=== PATIENT | female | born 1950 | race African-American/Black ===

== ENCOUNTER 2022-03-21 12:32 | Emergency (ER) | payer MEDICARE, SELFPAY ==
--- NOTE | ~2022-03-21 | CT_ITS ---
EXAMINATION: CT brain wo con DATE: 03/21/2022 14:40 INDICATION: trauma . TECHNIQUE: Computed tomography (CT) of the head was performed without intravenous contrast. The mA wa s adjusted according to patient size. Iterative reconstruction technique was employed. The dose-lengt h product was 605.33 mGy-cm. COMPARISON: None FINDINGS: No acute intracranial hemorrhage or extra-axial fluid collection. No hydrocephalus, mass, or herniation. No acute ischemic infarct. Unremarkable dural venous sinus attenuation. No acute osseous abnormality. Small retention cyst or polyp in the left anterior ethmoid air cells, minimal bilateral maxillary sin us mucosal thickening, trace left mastoid fluid, the remaining aerated spaces are clear. Mild atrophy and chronic white matter change. Atherosclerotic intracranial calcification. Bilateral l ens replacements. IMPRESSION: No acute intracranial process. Reviewed, dictated and finalized at location K.
--- NOTE | ~2022-03-21 | CT_ITS ---
EXAMINATION: CT facial & cervical spine wo DATE: 03/21/2022 14:39 INDICATION: trauma TECHNIQUE: Computed tomography (CT) of the maxillofacial region and cervical spine was performed with out intravenous contrast. Automated exposure control and iterative reconstruction technique were empl oyed. The dose-length product was 338.02 mGy-cm. COMPARISON: None FINDINGS: CERVICAL: Vertebral Body Alignment: Intact. Craniocervical and atlantoaxial alignment: Moderate degenerative change. Alignment intact. Osseous structures/fracture: No evidence of a lytic or blastic process in the visualized spine. Nond isplaced fracture through the right lamina of C6. Cervical soft tissues: The paraspinal soft tissues planes are maintained. Degenerative changes: Degenerative changes, without severe central canal narrowing. Multilevel bilate ral severe neural foraminal narrowing. FACE: Soft Tissues: Significant soft tissue swelling over the mandible, with small laceration. Facial bones: Oblique nondisplaced fracture through the anterior portion of the left mandibular body which carries through the root beds of the left mandibular premolars. No lytic or blastic process. Eyes: The globes are intact. Bilateral lens replacements. The soft tissue planes of the orbits are m aintained. Paranasal Sinuses: Small retention cyst or polyp in the left anterior ethmoid air cells. Minimal janette ateral maxillary sinus mucosal thickening. Trace left mastoid effusion. Foreign Bodies: No radiopaque foreign bodies. Other Findings: None. IMPRESSION: Nondisplaced fracture of the right C6 lamina. Nondisplaced oblique fracture of the left mandibular kelly dy. Reviewed, dictated and finalized at location K. IMPRESSION: Nondisplaced fracture of the right C6 lamina. Nondisplaced oblique fracture of the left mandibular body.
--- NOTE | ~2022-03-21 | CT_ITS ---
EXAMINATION: CT chest abdomen pelvis w con DATE: 03/21/2022 14:39 INDICATION: trauma with right chest pain and epigastric pain . TECHNIQUE: Computed tomography (CT) of the chest, abdomen, and pelvis was performed with 100 mL Omnip aque-350 intravenous contrast. Automated exposure control and iterative reconstruction technique were employed. The dose-length product was 1582.13 mGy-cm. COMPARISON: None FINDINGS: CHEST: No thoracic aortic injury. Mild arch calcification. No mediastinal hematoma. No pericardial effusion. Moderate cardiomegaly. No acute lung injury. Emphysematous and senescent change. Right basilar atelectasis. No pneumothorax. Moderate volume right pleural fluid. ABDOMEN/PELVIS: No solid organ injury. Hepatomegaly. Steatosis. Pancreatic and bilateral renal cortical atrophy. No evidence of bowel or mesenteric injury. No free fluid or free air. Mild mesenteric edema and presacral edema. No retroperitoneal hematoma. Pelvic contents are atraumatic. Marked uterine enlargement, with both calcified and noncalcified mass es. MUSCULOSKELETAL: No acute fracture. Diffuse body wall edema No fracture or traumatic malalignment of the thoracic or lumbar spine. IMPRESSION: Moderate right pleural effusion. Hepatomegaly and steatosis. Uterine enlargement with multiple masses , consider nonemergent, outpatient pelvic MR for further evaluation. Reviewed, dictated and finalized at location K. IMPRESSION: Moderate right pleural effusion. Hepatomegaly and steatosis. Uterine enlargemen t with multiple masses, consider nonemergent, outpatient pelvic MR for further evaluation.
[2022-03-21 12:43] VITALS: BP 151/109; PULSE 118; RESP 18; TEMP 36.2; O2SAT 96
[2022-03-21 13:58] LABS: Basophils Absolute Auto 0.1 K/mm3 (0.0-0.1); Basophils Percent Auto 0.6 % (0.2-1.2); Eosinophils Percent Auto 0.2 % (0-4.4); Hematocrit 50.8 % (37.0-47.0); Hemoglobin 16.8 g/dL (12.0-15.0); Immature Granulocyte Absolute 0.05 K/mm3 (0.00-0.031); Immature Granulocyte Percent A 0.4 % (0-0.5); Lymphocytes Percent Auto 14.4 % (18.3-44.2); Mean Corpuscular HGB Conc 33.1 g/dl (32-36); Mean Corpuscular Hemoglobin 31.3 pg (26-34); Mean Corpuscular Volume 94.8 fl (80-100); Mean Platelet Volume 9.5 fl (7.4-10.4); Monocytes Absolute Auto 0.8 K/mm3 (0.1-0.6); Monocytes Percent Auto 6.4 % (2.6-8.5); Neutrophils Absolute Auto 9.7 K/mm3 (1.3-6.7); Platelet Count Result 217 k/mm3 (150-375); Red Blood Count 5.36 M/mm3 (4.2-5.4); Red Cell Distribution Width 16.4 % (11.5-14.5); White Blood Count 12.5 K/mm3 (4.5-10.0)
[2022-03-21] MEDS: MORPHINE SULFATE (*CRX) 4 MG/ML INJ IV PUSH (13:58)
[2022-03-21 14:05] VITALS: BP 121/89; PULSE 93; RESP 18; O2SAT 95
[2022-03-21 14:09] LABS: Alanine Aminotransferase 27 U/L (6-35); Albumin Level 4.8 g/dL (3.5-5.1); Alkaline Phosphatase 140 U/L (38-126); Anion Gap 13 mmol/L (8-16); Aspartate Amino Transferase 57 U/L (14-36); Bilirubin,Total 1.9 mg/dL (0.2-1.3); Blood Urea Nitrogen 13 mg/dL (7-17); Calcium 9.2 mg/dL (8.4-10.2); Carbon Dioxide 30 mmol/L (22-30); Chloride 98 mmol/L (98-107); Estimated CRCL calculation 56 ml/min; Estimated Glomerular Filt Rate > 60; Glucose 113 mg/dL (65-110); INR 1.1; Partial Thromboplastin Time 29.1 SECONDS (22.3-36.8); Potassium 3.9 mmol/L (3.4-5.0); Prothrombin Time 13.8 Seconds (11.1-14.7); Sodium 141 mmol/L (137-145)
[2022-03-21 15:36] LABS: Appearance Urine Clear (Clear); Bilirubin Urine 2+ (Negative); Blood Urine 1+ (Negative); Color Urine Yellow (Yellow); Glucose Urine UA Negative (Negative); Ketones Urine Trace mg/dL (Negative); Leukocyte Esterase Ur Negative LEU/UL (Negative); Nitrate Urine Negative (Negative); Protein Urine 3+ mg/dL (Negative); Specific Grav Ur 1.015 (1.001-1.035)
--- NOTE | 2022-03-21 15:44 | ED.FALL ---
HPI - Fall General Chief Complaint: Fall Stated Complaint: fall Time Seen by Provider: 03/21/22 13:06 History of Present Illness HPI Narrative: Patient is a 71-year-old female who presents ER with multiple complaints. She reports last night she was drinking alcohol and got to the point where she tripped and fell. She does not remember the fall and believes she lost consciousness. Today she has pain to her chin, her right chest wall as well as her abdomen. Denies bruising to abdomen or chest wall. She has swelling and bruising to the jaw. No difficulty breathing or swallowing. Has pain with trying to eat and put her teeth together. She is not on any blood thinners. Related Data Allergies Allergy/AdvReac Type Severity Reaction Status Date / Time ANASTASIYA Inhibitors Allergy Mild cough Verified 03/21/22 13:04 bee pollen Allergy Unknown Unknown Verified 03/21/22 13:04 Bumble Bee Allergy Unknown CARRIED Uncoded 03/21/22 13:04 EPIPEN Honey Bee Allergy Unknown CARRIED Uncoded 03/21/22 13:04 EPI PEN Review of Systems Review of Systems: All systems reviewed & are unremarkable except as noted in HPI and below Constitutional: Constitutional: Denies chills, Denies fatigue and Denies fever(s) Eyes: Eyes: Denies change in vision and Denies photophobia ENT: Denies nasal congestion and Denies sore throat Comments: Jaw pain Cardiovascular: Cardiovascular: Reports chest pain, Denies rapid heart rate and Denies radiating jaw, neck or arm pain Respiratory: Respiratory: Denies cough, Denies dyspnea and Denies wheezing Gastrointestinal: Gastrointestinal: Reports abdominal pain, Denies diarrhea, Denies nausea and Denies vomiting Genitourinary: Genitourinary: Denies dysuria and Denies flank pain Neurologic: Reports syncope, Denies headache(s), Denies focal weakness and Denies numbness PMFSH Past Medical History Medical History (Updated 03/21/22 @ 16:24 by Jose Alfredo Harper MD) Anxiety Breast CA Diabetes mellitus Essential hypertension Hyperlipidemia Hypersomnia Surgical History Surgical History History of cataract surgery Family History Family History Mother Patient's mother is in good health Father Patient's father is in good health Sibling Patient's brother is in good health Social History Social History Smoking status: Current every day smoker Tobacco type: cigarettes Second hand tobacco smoke exposure: No Alcohol intake: current Exam Narrative: GENERAL: Uncomfortable-appearing, well-nourished, and in no acute distress. HEAD: Normocephalic, atraumatic. EYES: PERRL and EOMI. ENT: Mucous membranes moist. Bruising mental region of the jaw and left mandible. No intraoral fracture identified. Abrasion also noted over the jaw. NECK: Supple. Mild neck tenderness. CHEST: Clear to auscultation. No respiratory distress. Tender palpation over the right chest wall beneath the axilla. HEART: Regular rate and rhythm. Normal peripheral pulses. ABDOMEN: Soft, diffusely tender but worse in the epigastrium with guarding, nondistended, normal active bowel sounds. EXTREMITIES: Normal range of motion. No edema. SKIN: Warm, dry, no rash. NEURO: No focal deficits. Alert and oriented x3. Course Course Emergency Course: Accepted by Dr. Hughes to [facility]. C-spine immobilized. Vital Signs Vital signs: Vital Signs Temperature 97.2 F L 03/21/22 12:43 Pulse Rate 118 H 03/21/22 12:43 Respiratory Rate 18 03/21/22 12:43 Blood Pressure 151/109 H 03/21/22 12:43 Pulse Oximetry 96 03/21/22 12:43 Temperature 97.2 F L 03/21/22 12:43 Pulse Rate 93 03/21/22 14:05 Respiratory Rate 18 03/21/22 14:05 Blood Pressure 121/89 03/21/22 14:05 Pulse Oximetry 95 03/21/22 14:05 MDM - Fall Lab Data Result diagrams: 03/21/22 13:52
[2022-03-21 15:46] LABS: Mucus Urine Rare /lpf; Squamous Epithelial Cell Urine Rare /hpf (Few); WBC Urine 0-3 /hpf
[2022-03-21 16:00] LABS: Add Urine Microscopic? YES
[2022-03-21 16:23] VITALS: BP 141/83; PULSE 93; RESP 20; O2SAT 95
[2022-03-21 17:21] VITALS: BP 133/79; PULSE 89; RESP 18; O2SAT 95
== END 2022-03-21 17:30 | disposition short-term general hospital (02) ==
PROVIDERS: Emergency Provider Emergency Medicine; PCP Internal Medicine
DX: S12.501A Unspecified nondisplaced fracture of sixth cervical vertebra, initial encounter for closed fracture (principal); S02.602A Fracture of unspecified part of body of left mandible, initial encounter for closed fracture; E11.9 Type 2 diabetes mellitus without complications; I10 Essential (primary) hypertension; E78.5 Hyperlipidemia, unspecified; F17.210 Nicotine dependence, cigarettes, uncomplicated; Z85.3 Personal history of malignant neoplasm of breast; W01.0XXA Fall on same level from slipping, tripping and stumbling without subsequent striking against object, initial encounter
CPT/HCPCS: 36415; 51701; 70450; 70486; 71260; 72125; 74177; 80053; 81001; 85025; 85610; 85730; 96374; 99285; J2270; L0140; Q9967